=== PATIENT | female | born 1990 | race Caucasian/White ===

== ENCOUNTER 2017-05-28 05:02 | Emergency (ER) | payer SELFPAY ==
[~2017-05-28] VITALS: Ht 162.6 cm; Wt 73.2 kg
[2017-05-28] MEDS ORDERED: PERCOCET 5/31 TABLET PO (05:38)
[2017-05-28] MEDS ORDERED: PREDNISONE20 MG PO (05:38)
[2017-05-28 05:49] VITALS: BP 116/89
== END 2017-05-28 05:50 | disposition home or self-care (01) ==
LOC: EME 05:02
DX: M54.16 Radiculopathy, lumbar region (principal); G89.29 Other chronic pain; Z88.6 Allergy status to analgesic agent
CPT/HCPCS: 99281; 99284; J1885